=== PATIENT | female | born 2000 | race African-American/Black ===

== ENCOUNTER 2020-10-14 18:11 | Emergency (ER) | payer OTHER, SELFPAY ==
[2020-10-14 18:15] VITALS: PULSE 93; RESP 22; TEMP 37.3; O2SAT 99
--- NOTE | 2020-10-14 18:55 | PC.NURSE ---
Observed patient sitting on gurney swinging her feet and just tapped her head with her clenched fist.
--- NOTE | 2020-10-14 18:56 | ED_ITS ---
HPI - Psych <Lindsay Blevins MD - Last Filed: 10/15/20 20:02> General Chief Complaint: Psychiatric Symptoms Stated Complaint: SI Time Seen by Provider: 10/14/20 18:56 Source: patient Mode of arrival: Ambulatory History of Present Illness HPI Narrative: 20-year-old woman with a history of schizoaffective bipolar type who is having increasing suicidal ideation and increasing auditory hallucinations. She has a primary caregiver in a psychiatric nurse practitioner both whom she sees via telehealth and are in [place] and [facility] respectively. She states that she restarted her lithium and olanzapine 2 days ago and does not feel that it is making a difference. She continues her Lamictal, gabapentin, benztropine but is concerned that this current concoction medications is what she had been on about a year ago and she feels that she is not making any forward progress. She notes that she was hospitalized for similar complaints about a year ago in [place]. Her current plan for hurting herself would be to drive off the [place] bridge. She says that last weekend she overdosed on her gabapentin (as this was the only medication available to her at that time) and then became nauseated and vomited them up. She states that she has had multiple prior suicide attempts in the past. She notes that she typically does not have auditory or visual hallucinations but over the last week she has been hearing increasing auditory with spurs, no command hallucinations. She has having no visual hallucinations. She notes that she has occasional heart palpitations and has had this ever since her Geodon was discontinued when she began to developed tardive dyskinesia symptoms. She recently moved back to the [facility] after going to school in [place]. Her parents have moved to the [facility] and she is currently living with them. She is requesting help with voluntary admission for increasing suicidal ideations. She does not feel safe at this time and does not feel that she can contract for safety if she is discharged home. Related Data Home Medications Medication Instructions Recorded Confirmed lamotrigine 200 mg PO QPM 10/15/20 10/15/20 lamotrigine [Lamictal] 50 mg PO QPM 10/15/20 10/15/20 lithium carbonate 300 mg PO BEDTIME 10/15/20 10/15/20 olanzapine 5 mg PO BEDTIME 10/15/20 10/15/20 Allergies Allergy/AdvReac Type Severity Reaction Status Date / Time ziprasidone [From Geodon] AdvReac tardive Verified 10/14/20 19:38 diskinesia symptoms Review of Systems <Lindsay Blevins MD - Last Filed: 10/15/20 20:02> Review of Systems Narrative: Pertinent positive and negative findings as per HPI Remainder of review of systems is otherwise unremarkable for Constitutional: Fevers, chills, weakness ENT: No sore throat, neck pain, ear pain CV: Chest pain, dyspnea on exertion Respiratory: Cough, wheeze, dyspnea GI: diarrhea, change in bowel habits, black or bloody stools : Dysuria, hematuria, flank pain MS: Muscle weakness, numbness, joint swelling or warmth Skin: Rashes, nonhealing lesions Neuro: Syncope, dizziness, tingling Psych: Depression, anxiety, suicidal ideation Endocrine: Fatigue, heat or cold intolerance, very dry skin Patient History <Lindsay Blevins MD - Last Filed: 10/15/20 20:02> Medical History Anxiety Schizoaffective disorder, bipolar type Social History Smoking Status: Never smoker Smoking Status: Never smoker alcohol intake frequency: 0-2 drinks per day Exam <Lindsay Blevins MD - Last Filed: 10/15/20 20:02> Narrative Exam Narrative: General: Healthy appearing, in no acute distress. Able to give a complete and coherent history. Well-nourished well-developed HEENT: Moist mucous membranes, normal sclera with reactive pupils, Neck: No JVD, supple Respiratory: Lungs are clear to auscultation, no wheezing no rales no rhonchi. Full and symmetrical air movement Cardiac: Regular rate and rhythm no murmurs no bruits Abdomen: Soft, nontender, good bowel tones, no flank pain Skin: Warm and dry, no rashes Neurologic: Grossly neurologically intact with no obvious asymmetries or abnormalities Extremities: No trauma, well perfused Psych: Cooperative, flat affect, poor eye contact and does seem to be responding to internal stimuli(auditory hallucinations). Speech is fluent and nonpressured. Thought content is appropriate Initial Vital Signs Initial Vital Signs: Vital Signs Temperature 99.1 F 10/14/20 18:15 Pulse Rate 93 H 10/14/20 18:15 Respiratory Rate 22 10/14/20 18:15 Pulse Oximetry 99 10/14/20 18:15 <Valentina Padilla DO - Last Filed: 10/15/20 18:39> Initial Vital Signs Initial Vital Signs: Vital Signs Temperature 99.1 F 10/14/20 18:15 Pulse Rate 93 H 10/14/20 18:15 Respiratory Rate 22 10/14/20 18:15 Pulse Oximetry 99 10/14/20 18:15 Course <Lindsay Blevins MD - Last Filed: 10/15/20 20:02> Orders Ordered: Discontinued Medications Benztropine Mesylate (Benztropine 1 Mg Tablet) 1 mg PO NOW ONE Stop: 10/14/20 22:05 Last Admin: 10/14/20 23:44 Dose: Not Given Documented by: JESS Lamotrigine (Lamotrigine 100 Mg Tablet) 250 mg PO NOW ONE Stop: 10/14/20 22:04 Last Admin: 10/14/20 22:57 Dose: 250 mg Documented by: JESS Olanzapine (Olanzapine Odt 10 Mg Tab) 10 mg PO NOW ONE Stop: 10/14/20 22:04 Last Admin: 10/14/20 22:58 Dose: 10 mg Documented by: JESS Prazosin HCl (Prazosin 1 Mg Capsule) 1 mg PO NOW ONE Stop: 10/14/20 22:05 Last Admin: 10/14/20 22:57 Dose: 1 mg Documented by: JESS Vital Signs Vital signs: Vital Signs - 8 hr 10/15/20 17:45 Temperature 98.9 F Pulse Rate 83 Respiratory Rate 18 Blood Pressure [Left Arm] 122/79 Pulse Oximetry 97 <Valentina Padilla DO - Last Filed: 10/15/20 18:39> Orders Ordered: Discontinued Medications Benztropine Mesylate (Benztropine 1 Mg Tablet) 1 mg PO NOW ONE Stop: 10/14/20 22:05 Last Admin: 10/14/20 23:44 Dose: Not Given Documented by: JESS Lamotrigine (Lamotrigine 100 Mg Tablet) 250 mg PO NOW ONE Stop: 10/14/20 22:04 Last Admin: 10/14/20 22:57 Dose: 250 mg Documented by: JESS Olanzapine (Olanzapine Odt 10 Mg Tab) 10 mg PO NOW ONE Stop: 10/14/20 22:04 Last Admin: 10/14/20 22:58 Dose: 10 mg Documented by: JESS Prazosin HCl (Prazosin 1 Mg Capsule) 1 mg PO NOW ONE Stop: 10/14/20 22:05 Last Admin: 10/14/20 22:57 Dose: 1 mg Documented by: JESS Vital Signs Vital signs: Vital Signs - 8 hr 10/15/20 17:45 Temperature 98.9 F Pulse Rate 83 Respiratory Rate 18 Blood Pressure [Left Arm] 122/79 Pulse Oximetry 97 MDM - Psych <Lindsay Blevins MD - Last Filed: 10/15/20 20:02> Medical Records Attestation: I reviewed the patient's medical records. Lab Data Attestation: I reviewed the patient's lab results. Result diagrams: 10/14/20 18:45 10/14/20 18:45 Labs: Lab Results 10/14/20 10/14/20 10/14/20 Range/Units 18:45 18:45 18:45 WBC 7.0 (4.5-11.0) X10^3/uL RBC 5.02 (4.0-5.2) X10^6/uL Hgb 15.4 (12.0-16.0) g/dL Hct 45.1 (36-46) % MCV 89.8 (80-100) fL MCH 30.7 (26-34) PG MCHC 34.2 (30-36) % RDW 11.9 (11.6-14.8) % Plt Count 265 (150-400) X10^3/uL Neut % (Auto) 57.2 (50-75) % Lymph % (Auto) 34.9 (25-40) % [place] % (Auto) 6.1 (3-14) % Eos % (Auto) 1.3 L (2-4) % Baso % (Auto) 0.5 (0-2) % Neut # (Auto) 4000 (8506-7883) /uL Lymph # (Auto) 2500 (3923-5221) /uL [place] # (Auto) 400 (0-900) /uL Eos # (Auto) 100 (0-450) /uL Baso # (Auto) 0 (0-100) /uL Sodium 139 (137-145) mmol/L Potassium 3.7 (3.4-5.1) mmol/L Chloride 105 (98-107) mmol/L Carbon Dioxide 28 (22-32) mmol/L BUN 10 (7-17) mg/dL Creatinine 0.86 (0.52-1.04) mg/dL Estimated GFR > 60.0 (>60) mL/min BUN/Creatinine Ratio 11.6 (6-22) Glucose 117 H (70-100) mg/dL Calcium 9.1 (8.4-10.2) mg/dL Total Bilirubin 0.2 (0.2-1.3) mg/dL AST 23 (14-36) IU/L ALT 19 (<35) IU/L Alkaline Phosphatase 76 (38-126) U/L Total Protein 7.7 (6.3-8.2) g/dL Albumin 4.5 (3.5-5.0) g/dL Globulin 3.2 (1.7-4.1) g/dL Albumin/Globulin Ratio 1.4 (1.0-2.8) TSH 3.63 (0.47-4.68) uIU/mL Free T4 1.15 (0.78-2.19) ng/dL Salicylates < 1.0 (<20) mg/dL U Opiates 300ng/mL cut (Negative) Ur Oxycodone Screen (Negative) Urine Methadone Screen (Negative) Acetaminophen < 10 L (10-30) ug/mL Ur Barbiturates Screen (Negative) U Tricyclic Antidepress (Negative) Ur Phencyclidine Scrn (Negative) Ur Amphetamines Screen (Negative) U Methamphetamines Scrn (Negative) Ur MDMA Scrn (Ecstasy) (Negative) U Benzodiazepines Scrn (Negative) [place] (0.6-1.2) mmol/L Urine Cocaine Screen (Negative) U Marijuana (THC) Screen (Negative) Ethyl Alcohol < 10 ( - 10) mg/dL SARS-CoV-2 (PCR) (Negative) 10/14/20 10/14/20 10/14/20 Range/Units 18:45 19:05 19:50 WBC (4.5-11.0) X10^3/uL RBC (4.0-5.2) X10^6/uL Hgb (12.0-16.0) g/dL Hct (36-46) % MCV (80-100) fL MCH (26-34) PG MCHC (30-36) % RDW (11.6-14.8) % Plt Count (150-400) X10^3/uL Neut % (Auto) (50-75) % Lymph % (Auto) (25-40) % [place] % (Auto) (3-14) % Eos % (Auto) (2-4) % Baso % (Auto) (0-2) % Neut # (Auto) (4603-9222) /uL Lymph # (Auto) (8081-3390) /uL [place] # (Auto) (0-900) /uL Eos # (Auto) (0-450) /uL Baso # (Auto) (0-100) /uL Sodium (137-145) mmol/L Potassium (3.4-5.1) mmol/L Chloride (98-107) mmol/L Carbon Dioxide (22-32) mmol/L BUN (7-17) mg/dL Creatinine (0.52-1.04) mg/dL Estimated GFR (>60) mL/min BUN/Creatinine Ratio (6-22) Glucose (70-100) mg/dL Calcium (8.4-10.2) mg/dL Total Bilirubin (0.2-1.3) mg/dL AST (14-36) IU/L ALT (<35) IU/L Alkaline Phosphatase (38-126) U/L Total Protein (6.3-8.2) g/dL Albumin (3.5-5.0) g/dL Globulin (1.7-4.1) g/dL Albumin/Globulin Ratio (1.0-2.8) TSH (0.47-4.68) uIU/mL Free T4 (0.78-2.19) ng/dL Salicylates (<20) mg/dL U Opiates 300ng/mL cut Negative (Negative) Ur Oxycodone Screen Negative (Negative) Urine Methadone Screen Negative (Negative) Acetaminophen (10-30) ug/mL Ur Barbiturates Screen Negative (Negative) U Tricyclic Antidepress Negative (Negative) Ur Phencyclidine Scrn Negative (Negative) Ur Amphetamines Screen Negative (Negative) U Methamphetamines Scrn Negative (Negative) Ur MDMA Scrn (Ecstasy) Negative (Negative) U Benzodiazepines Scrn Negative (Negative) [place] < 0.2 L (0.6-1.2) mmol/L Urine Cocaine Screen Negative (Negative) U Marijuana (THC) Screen Negative (Negative) Ethyl Alcohol ( - 10) mg/dL SARS-CoV-2 (PCR) Negative (Negative) Point of Care Testing Test Results Negative Urine Dip Bedside Urine Glucose Negative Bedside Urine Bilirubin - Negative Bedside Urine Ketone - Negative Urine Specific [place] 1.010 Bedside Urine Occult Blood - Negative Bedside Urine pH 6.0 Bedside Urine Protein - Negative Bedside Urine Urobilinogen - Negative Bedside Urine Nitrite - Negative Bedside Urine Leukocytes - Negative Esterase ECG Data Attestation: I personally reviewed and interpreted this ECG as follows: Interpretation: Sinus rhythm at a rate of 88 Normal intervals, QTC is 438 Normal axis No acute ischemic changes Normal EKG MDM Narrative Medical decision making narrative: 20-year-old woman with schizoaffective disorder bipolar type with increasing auditory hallucinations and suicidal ideation who feels unsafe and is requesting help with voluntary psychiatric admission. She is medically cleared. We currently do not have access to a sawmill production worker until tomorrow around noon. Will see if there are any voluntary psychiatric beds available at this time. 10pm discussed concerns and findings with the patient. Offered to have her stay in the emergency room overnight with sawmill production worker can help 1st thing in the morning. She is agreeable. Have ordered her nighttime meds. <Valentina Padilla, DO - Last Filed: 10/15/20 18:39> Lab Data Labs: Lab Results 10/14/20 10/14/20 10/14/20 Range/Units 18:45 18:45 18:45 WBC 7.0 (4.5-11.0) X10^3/uL RBC 5.02 (4.0-5.2) X10^6/uL Hgb 15.4 (12.0-16.0) g/dL Hct 45.1 (36-46) % MCV 89.8 (80-100) fL MCH 30.7 (26-34) PG MCHC 34.2 (30-36) % RDW 11.9 (11.6-14.8) % Plt Count 265 (150-400) X10^3/uL Neut % (Auto) 57.2 (50-75) % Lymph % (Auto) 34.9 (25-40) % [place] % (Auto) 6.1 (3-14) % Eos % (Auto) 1.3 L (2-4) % Baso % (Auto) 0.5 (0-2) % Neut # (Auto) 4000 (8799-3095) /uL Lymph # (Auto) 2500 (4823-1583) /uL [place] # (Auto) 400 (0-900) /uL Eos # (Auto) 100 (0-450) /uL Baso # (Auto) 0 (0-100) /uL Sodium 139 (137-145) mmol/L Potassium 3.7 (3.4-5.1) mmol/L Chloride 105 (98-107) mmol/L Carbon Dioxide 28 (22-32) mmol/L BUN 10 (7-17) mg/dL Creatinine 0.86 (0.52-1.04) mg/dL Estimated GFR > 60.0 (>60) mL/min BUN/Creatinine Ratio 11.6 (6-22) Glucose 117 H (70-100) mg/dL Calcium 9.1 (8.4-10.2) mg/dL Total Bilirubin 0.2 (0.2-1.3) mg/dL AST 23 (14-36) IU/L ALT 19 (<35) IU/L Alkaline Phosphatase 76 (38-126) U/L Total Protein 7.7 (6.3-8.2) g/dL Albumin 4.5 (3.5-5.0) g/dL Globulin 3.2 (1.7-4.1) g/dL Albumin/Globulin Ratio 1.4 (1.0-2.8) TSH 3.63 (0.47-4.68) uIU/mL Free T4 1.15 (0.78-2.19) ng/dL Salicylates < 1.0 (<20) mg/dL U Opiates 300ng/mL cut (Negative) Ur Oxycodone Screen (Negative) Urine Methadone Screen (Negative) Acetaminophen < 10 L (10-30) ug/mL Ur Barbiturates Screen (Negative) U Tricyclic Antidepress (Negative) Ur Phencyclidine Scrn (Negative) Ur Amphetamines Screen (Negative) U Methamphetamines Scrn (Negative) Ur MDMA Scrn (Ecstasy) (Negative) U Benzodiazepines Scrn (Negative) [place] (0.6-1.2) mmol/L Urine Cocaine Screen (Negative) U Marijuana (THC) Screen (Negative) Ethyl Alcohol < 10 ( - 10) mg/dL SARS-CoV-2 (PCR) (Negative) 10/14/20 10/14/20 10/14/20 Range/Units 18:45 19:05 19:50 WBC (4.5-11.0) X10^3/uL RBC (4.0-5.2) X10^6/uL Hgb (12.0-16.0) g/dL Hct (36-46) % MCV (80-100) fL MCH (26-34) PG MCHC (30-36) % RDW (11.6-14.8) % Plt Count (150-400) X10^3/uL Neut % (Auto) (50-75) % Lymph % (Auto) (25-40) % [place] % (Auto) (3-14) % Eos % (Auto) (2-4) % Baso % (Auto) (0-2) % Neut # (Auto) (9733-7395) /uL Lymph # (Auto) (0310-2472) /uL [place] # (Auto) (0-900) /uL Eos # (Auto) (0-450) /uL Baso # (Auto) (0-100) /uL Sodium (137-145) mmol/L Potassium (3.4-5.1) mmol/L Chloride (98-107) mmol/L Carbon Dioxide (22-32) mmol/L BUN (7-17) mg/dL Creatinine (0.52-1.04) mg/dL Estimated GFR (>60) mL/min BUN/Creatinine Ratio (6-22) Glucose (70-100) mg/dL Calcium (8.4-10.2) mg/dL Total Bilirubin (0.2-1.3) mg/dL AST (14-36) IU/L ALT (<35) IU/L Alkaline Phosphatase (38-126) U/L Total Protein (6.3-8.2) g/dL Albumin (3.5-5.0) g/dL Globulin (1.7-4.1) g/dL Albumin/Globulin Ratio (1.0-2.8) TSH (0.47-4.68) uIU/mL Free T4 (0.78-2.19) ng/dL Salicylates (<20) mg/dL U Opiates 300ng/mL cut Negative (Negative) Ur Oxycodone Screen Negative (Negative) Urine Methadone Screen Negative (Negative) Acetaminophen (10-30) ug/mL Ur Barbiturates Screen Negative (Negative) U Tricyclic Antidepress Negative (Negative) Ur Phencyclidine Scrn Negative (Negative) Ur Amphetamines Screen Negative (Negative) U Methamphetamines Scrn Negative (Negative) Ur MDMA Scrn (Ecstasy) Negative (Negative) U Benzodiazepines Scrn Negative (Negative) [place] < 0.2 L (0.6-1.2) mmol/L Urine Cocaine Screen Negative (Negative) U Marijuana (THC) Screen Negative (Negative) Ethyl Alcohol ( - 10) mg/dL SARS-CoV-2 (PCR) Negative (Negative) Point of Care Testing Test Results Negative Urine Dip Bedside Urine Glucose Negative Bedside Urine Bilirubin - Negative Bedside Urine Ketone - Negative Urine Specific [place] 1.010 Bedside Urine Occult Blood - Negative Bedside Urine pH 6.0 Bedside Urine Protein - Negative Bedside Urine Urobilinogen - Negative Bedside Urine Nitrite - Negative Bedside Urine Leukocytes - Negative Esterase MDM Narrative Medical decision making narrative: Patient signed out to me by maintenance supervisor 2nd shift provider. Social Work has been involved faxing paperwork to [facility]. However patient now states that she no longer feels suicidal she feels like her medication has been off she received 10 mg of olanzapine last night instead of 5 mg she feels like that has helped her a lot. She is [facility] with [facility] [place]. At this time I feel is though patient's recent history of 2 suicide attempts is high risk I feel she needs to be hospitalized. Patient is no longer wanting to be hospitalized at this point she is now in involuntary. Social work has been in to evaluate her since these changes as well and agrees. She has only been stable for a few hours and symptoms have been escalating for the last 2 weeks. Patient was given an option of being involuntary or voluntary at this time she chooses to be voluntary and agrees to go to hospital [facility] has accepted her. Discharge Plan Departure Patient Disposition: Xfer Psychiatric Hosp Clinical Impression: Schizoaffective disorder, bipolar type, Suicidal ideation Referrals: Jared Dodd MD [Primary Care Provider] -
--- NOTE | 2020-10-14 18:56 | PC.NURSE ---
pt keys given to dad, tenisha, per her request. pt belongings in 3 bags (clothing, shoes, wallet, house chaudhari, cell phone. pt wearing disposable scrubs and non slip socks.
[2020-10-14 19:02] LABS: Add Manual Diff / Slide Review NO; Basophils Absolute Auto 0 /uL (0-100); Basophils Percent Auto 0.5 % (0-2); Eosinophils Absolute Auto 100 /uL (0-450); Eosinophils Percent Auto 1.3 % (2-4); Hematocrit 45.1 % (36-46); Hemoglobin 15.4 g/dL (12.0-16.0); Lymphocytes Absolute Auto 2500 /uL (1100-4500); Lymphocytes Percent Auto 34.9 % (25-40); Mean Corpuscular HGB Conc 34.2 % (30-36); Mean Corpuscular Hemoglobin 30.7 PG (26-34); Mean Corpuscular Volume 89.8 fL (80-100); Monocytes Absolute Auto 400 /uL (0-900); Monocytes Percent Auto 6.1 % (3-14); Neutrophils Absolute Auto 4000 /uL (1500-7000); Neutrophils Percent Auto 57.2 % (50-75); Platelet Count 265 X10^3/uL (150-400); Red Blood Cell Count 5.02 X10^6/uL (4.0-5.2); Red Cell Distribution Width 11.9 % (11.6-14.8)
[2020-10-14 19:09] LABS: Acetaminophen < 10 ug/mL (10-30); Alanine Aminotransferase 19 IU/L (<35); Albumin 4.5 g/dL (3.5-5.0); Albumin Globulin Ratio 1.4 (1.0-2.8); Alkaline Phosphatase 76 U/L (38-126); Aspartate Aminotransferase 23 IU/L (14-36); BUN Creatinine Ratio 11.6 (6-22); Bilirubin Total 0.2 mg/dL (0.2-1.3); Blood Urea Nitrogen 10 mg/dL (7-17); Calcium 9.1 mg/dL (8.4-10.2); Carbon Dioxide 28 mmol/L (22-32); Chloride 105 mmol/L (98-107); Estimated Glomerular Filt Rate > 60.0 mL/min (>60); Ethanol (ETOH) < 10 mg/dL; Globulin 3.2 g/dL (1.7-4.1); Glucose 117 mg/dL (70-100); HEMOLYSIS < 15 (0-50); Potassium 3.7 mmol/L (3.4-5.1); Salicylate < 1.0 mg/dL (<20); Sodium 139 mmol/L (137-145); Total Protein 7.7 g/dL (6.3-8.2)
--- NOTE | 2020-10-14 19:13 | PC.NURSE ---
pt states if she goes to another facility it is ok to let her dad, rebecca, know.
--- NOTE | 2020-10-14 19:20 | PC.NURSE ---
Observed Patient softly striking the side of her head with both fists 3 times
[2020-10-14 19:25] LABS: Lithium < 0.2 mmol/L (0.6-1.2)
--- NOTE | 2020-10-14 19:37 | PC.NURSE ---
Patient suddenly burst into tears after I asked her what her height was. She stated she wished she didn't check herself into the hospital, and that she goes back and forth between wanting to kill herself and not wanting to.
[2020-10-14 19:38] LABS: Free T4, Direct Thyroxine 1.15 ng/dL (0.78-2.19)
[2020-10-14 19:39] LABS: COVID19 -Nasal RAPID Negative (Negative)
--- NOTE | 2020-10-14 19:50 | PC.NURSE ---
Observed patient hitting her head hard with both clenched fists four times and whimpering.
[2020-10-14 19:52] LABS: Thyroid Stimulating Hormone 3.63 uIU/mL (0.47-4.68)
[2020-10-14 20:02] LABS: UR Morphine/Opiate cutoff 300 Negative (Negative); Ur Creatinine Normal (Normal); Ur Specific Gravity Normal (Normal); Urine Amphetamines Negative (Negative); Urine Barbiturates Negative (Negative); Urine Benzodiazepines Negative (Negative); Urine Cocaine Negative (Negative); Urine MDMA Negative (Negative); Urine Methadone Negative (Negative); Urine Methamphetamines Negative (Negative); Urine Oxycodone Negative (Negative); Urine Phencyclidine Negative (Negative); Urine Tetrahydrocannabinol Negative (Negative); Urine Tricyclic Antidepressant Negative (Negative); Urine pH Normal (Normal)
[2020-10-14] MEDS: PRAZOSIN 1 MG CAPSULE PO (22:57)
[2020-10-14] MEDS: lamoTRIgine 100 MG TABLET 250 MG PO (22:57)
[2020-10-14] MEDS: OLANZapine ODT 10 MG TAB PO (22:58)
--- NOTE | 2020-10-15 00:57 | PC.NURSE ---
pt has been sleeping since change of shift at 23:30
[2020-10-15 08:00] VITALS: BP 121/70; PULSE 101; RESP 19; TEMP 36.8; O2SAT 98
--- NOTE | 2020-10-15 10:23 | PC.NURSE ---
TRIAGE REGISTERED NURSE/CYLINDER MACHINE OPERATOR Note: Patient is compliant and continues to sleep after breakfast was provided @0800. Vitals signs taken. Temp:98.3 oral, Pulse:101, Respiration: 19, O2:98% RA,: B/P: 121/70. Daysi notified. Will continue to monitor.
[2020-10-15 12:00] VITALS: BP 115/72; PULSE 102; RESP 20; TEMP 36.9; O2SAT 97
--- NOTE | 2020-10-15 12:16 | CM.SWNOTE ---
SMALL BUSINESS REPRESENTATIVE note SMALL BUSINESS REPRESENTATIVE reviewed chart and called [facility] for update on status. Laura at [facility] reports that she only received 4 pages of clinical packet. SMALL BUSINESS REPRESENTATIVE faxes over complete packet and provides [phone] for call back. SMALL BUSINESS REPRESENTATIVE updates ED Provider Dr. Padilla and URVASHI Stokes. Pl: SMALL BUSINESS REPRESENTATIVE will wait for placement decision from [facility]. MARCO A Rinaldi
--- NOTE | 2020-10-15 13:30 | PC.NURSE ---
pt states she realizes she is stressed over school. 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 i spoke with dr. hernandez and will let kayode know when he's back in the department. pt also has a telehealth therapy appt tomorrow.
--- NOTE | 2020-10-15 14:49 | CM.SWNOTE ---
SALES VENDOR note SALES VENDOR is informed by RN that patient is requesting to leave. SALES VENDOR enters room and introduces self to patient. Patient is A+O x3 is forthcoming with details and hx of SI and psychosis. Patient currently lives alone in [place]. Patient discusses recently reducing antipsychotic medication to [id number] under direction of PCP starting 2 weeks prior. Patient reports she did this due to jaw movements. Patient reports she then discontinued the medication completely and began to experience paranoia and delusions. Patient reports she started to feel suicidal about a week ago and states I couldn't think clearly to weigh the pros and cons. Patient reports drinking 1 bottle of wine and taking 60 gabapentin pills on 10/12 in an a suicide attempt, but reports she vomitted all of the pills. Patient reports she had planned to jump off of [place] bridge Patient reports she came to ED by herself as a result of this. Patient reports hx of SI/SA, with last inpatient hospitalization one year prior for SI. Patient meets regularly with counselor Avery Machado and rehab/pre vocational counselor Lavinia Hazel. Patient states she has a standing appt with Avery tomorrow, and provides SALES VENDOR with permission to contact both providers. Patient reports her psychology tech increased her medication previous Thursday and patient states that she believes it took a few days to kick in. Patient reports she is currently feeling stable and is not feeling suicidal at all at this time. Patient does offer that she realizes that she has only felt stable for half of a day. SALES VENDOR and patient discussed med stabilization and concerns for safety. Patient calmly states she does not want to go to inpatient treatment at this time, and is able to articulate what has been effective for her during other periods of psychosis and SI. Patient explains she had a negative exerpience at her last inpatient treatment center 1 year prior. Patient explains significant stress from current school load and states she plans to reduce her school work load so I don't fail at everything. SALES VENDOR exits room and speaks with Dr. Padilla. Patient is currently denying SI, however, patient has made two significant attempts in past 4 days. SALES VENDOR calls patient counselor Avery Machado at [phone]. Avery informs SALES VENDOR that he has been working with patient since July of 2020, and during their time, patient has demonstrated a pattern of medication non-compliance, SI, poor insight. Avery reports that patient often sends him e-mails during the night detailing suicide ideation, and that when he follows up with her the next day, she denies any SI. Avery reports that she hides her psychosis from those around her, and that informs SALES VENDOR that patient has expressed that she likes her hallucinations, including her visual hallucinations of demons and snakes. Avery also explains that he believes patient is not forthcoming with her prescriber regarding the extent of her hallucinations, and states that patient is really good at hiding her psychosis. Avery also reports that that family does not know/does not understand extent of patient's psychosis, and that patient has declined to include family in course of care. Avery notes that, following her release from last inpatient stay, patient was convinced by her mother to discontinue her antipsychotic medication. SALES VENDOR informs Avery that current plan will be to recommend inpatient treatment and Avery indicates agreement. SALES VENDOR agrees to follow up with Avery once plan is solidified. SALES VENDOR staffs with Dr. Padilla. Dr. Padilla in agreement with plan for inpatient. SALES VENDOR enters room and informs patient of recommendation for inpatient treatment for med stabilization. SALES VENDOR explains that SALES VENDOR can continue pursuing placement at [facility] if patient agreeable, and if not agreeable, SALES VENDOR would be required to initiate [facility] process. Patient states she is agreeable to attend and participate in voluntary treatment at [facility]. SALES VENDOR exchanges phone calls with [facility]. Laura from [facility] informs SALES VENDOR that patient has been accepted for placement. Details of acceptance placed in comments box in EMR and listed below: [facility]. Intake contact: Laura. Accepting Provider: Dr. Wong. [id number]: [phone]. SALES VENDOR updates, URVASHI Hollis, Dr. Padilla, and patient. All parties remain agreeable to plan of care. Plan: Patient to transfer to [facility] to continue behavioral health stabilization. MARCO A Rinaldi
--- NOTE | 2020-10-15 16:04 | PC.NURSE ---
Patient was given her phone for a few minutes to catch up with emails and texts. very calm and pleasant.
--- NOTE | 2020-10-15 16:23 | PC.NURSE ---
patient requested a new set of disposable scrubs in a larger size. Disposed the old set.
[2020-10-15 17:45] VITALS: BP 122/79; PULSE 83; RESP 18; TEMP 37.2; O2SAT 97
== END 2020-10-15 18:40 ==
PROVIDERS: Emergency Medicine; Emergency Provider Emergency Medicine; PCP Internal Medicine
DX: F25.0 Schizoaffective disorder, bipolar type (principal); R45.851 Suicidal ideations; R00.2 Palpitations; Z20.822 Contact with and (suspected) exposure to COVID-19
CPT/HCPCS: 36415; 80053; 80178; 80305; 80320; 80329; 81003; 81025; 84439; 84443; 85025; 87635; 93005; 99284; C9803; G0480

== ENCOUNTER → 2021-04-30 09:29 | Outpatient (CLI) | payer OTHER, SELFPAY | PROVIDERS: PCP Internal Medicine; Visit Provider Nurse Practitioner | DX: R30.9 Painful micturition, unspecified (principal) | CPT/HCPCS: 87077; 87086; 87186 ==

== ENCOUNTER → 2023-08-21 10:23 | Outpatient (CLI) | payer OTHER, SELFPAY ==
[2023-08-21 12:05] LABS: Creatine Kinase 102 U/L (30-135); Magnesium 2.1 mg/dL (1.6-2.3); Phosphorous 3.8 mg/dL (2.5-4.5)
[2023-08-21 12:14] LABS: NT-proBNP (BNP-Adult 18+) < 20 pg/mL (<125)
[2023-08-22 19:18] LABS: Tissue Transglutaminase IgA <2 U/mL (0-3)
[2023-08-24 08:43] LABS: IGA 124 mg/dL (87-352); IGG 553 mg/dL (586-1602); IGM 145 mg/dL (26-217)
== END ==
PROVIDERS: PCP Physician Assistant; Referring Provider Internal Medicine Gastroenterology; Visit Provider Internal Medicine Gastroenterology
DX: R19.7 Diarrhea, unspecified (principal)
CPT/HCPCS: 36415; 82550; 82784; 83516; 83735; 83880; 84100

== ENCOUNTER → 2023-10-02 17:33 | Outpatient (CLI) | payer OTHER, MEDICAID, SELFPAY ==
[2023-10-07 15:27] LABS: Calprotectin, Stool 5 ug/g (0-120)
== END ==
PROVIDERS: PCP Physician Assistant; Referring Provider Internal Medicine Gastroenterology; Visit Provider Internal Medicine Gastroenterology
DX: R19.7 Diarrhea, unspecified (principal)
CPT/HCPCS: 83993

== ENCOUNTER 2024-05-12 20:43 | Emergency (ER) | payer OTHER, SELFPAY ==
[2024-05-12] VITALS (7 sets, daily range): BP systolic 127–155; BP diastolic 63–94; PULSE 80–99; RESP 18–23; TEMP 36.6; O2SAT 98–100; BMI 37.6
--- NOTE | 2024-05-12 21:02 | EKG_ITS ---
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
--- NOTE | 2024-05-12 21:14 | ED.ARRPALP ---
HPI - Arrhythmia/Palpitations General Chief Complaint: Arrhythmia/Palpitations Stated Complaint: heart races when lays down, numbness Time Seen by Provider: 05/12/24 20:46 Source: patient Mode of arrival: Ambulatory History of Present Illness HPI narrative: Patient is a 23-year-old female. Has a history of schizoaffective disorder and anxiety. Is here for evaluation of approximately 3 weeks of symptoms where she states that when she lays down she feels like her heart is racing. During this time she also feels like her arms become numb. It happens every time she lays down. It improves when she sits up and walks around. She states it feels like when she has anxiety but she does not necessarily feel anxious. No chest pain. Symptoms seemed to start when she started a new medication (spironolactone) however she stopped taking this medicine 1 week ago in his still having symptoms. Related Data Home Medications Medication Instructions Recorded Confirmed lamotrigine 25 mg tablet (Lamictal) 50 mg PO QPM 10/15/20 01/19/24 cariprazine 3 mg capsule (Vraylar) 3 mg PO DAILY 04/30/21 01/19/24 gabapentin 300 mg capsule 1,200 mg PO DAILY 04/30/21 01/19/24 prazosin PO 04/30/21 01/19/24 budesonide 3 mg 3 mg PO DAILY 01/19/24 01/19/24 capsule,delayed,extended release hydroxyzine HCl 25 mg tablet 25 mg PO BID PRN 01/19/24 01/19/24 lithium carbonate 300 mg capsule 1,050 mg PO BEDTIME 01/19/24 01/19/24 mirtazapine 7.5 mg tablet 7.5 mg PO BEDTIME 01/19/24 01/19/24 Allergies Allergy/AdvReac Type Severity Reaction Status Date / Time ziprasidone [From Geodon] AdvReac tardive Verified 01/19/24 14:31 diskinesia symptoms Review of Systems Review of Systems ROS Unobtainable: All systems reviewed & are unremarkable except as noted in HPI and below Patient History Medical History Anxiety Schizoaffective disorder, bipolar type Social History Smoking Status: Former smoker Smoking Status: Former smoker alcohol intake frequency: 0-2 drinks per day Substance Use Type: does not use Exam Initial Vital Signs Initial Vital Signs: Vital Signs Temperature 97.9 F 05/12/24 20:48 Pulse Rate 89 05/12/24 20:48 Respiratory Rate 18 05/12/24 20:48 Blood Pressure 154/94 H 05/12/24 20:48 Pulse Oximetry 98 05/12/24 20:48 Oxygen Delivery Method Room Air 05/12/24 20:48 Const General: cooperative, comfortable and No ill appearing HENMT Head: normal to inspection and normocephalic Resp Effort & Inspection: normal respiratory effort Auscultation: clear to auscultation bilaterally Cardio Rate: regular rate Rhythm: regular rhythm GI Inspection: normal to inspection and non-distended Neuro General: patient alert, patient awake, patient oriented x3 and moves all extremities Psych Appearance: grossly normal and well kempt Course Orders Ordered: ED Orders 05/12/24 20:47 EKG-12 Lead Stat 05/12/24 21:14 Complete Blood Count AUTO DIFF Stat Comprehensive Metabolic Panel Stat Lipase Stat Magnesium Stat Vital Signs Vital signs: Vital Signs - 8 hr 05/12/24 20:48 05/12/24 20:55 05/12/24 20:57 Temperature 97.9 F Pulse Rate 89 89 90 Respiratory Rate 18 Blood Pressure 154/94 H Pulse Oximetry 98 98 Oxygen Delivery Method Room Air 05/12/24 20:57 05/12/24 21:00 05/12/24 21:31 Temperature Pulse Rate 83 84 Respiratory Rate Blood Pressure 155/92 H Pulse Oximetry 100 100 Oxygen Delivery Method 05/12/24 21:31 05/12/24 22:00 05/12/24 22:00 Temperature Pulse Rate 80 Respiratory Rate 21 Blood Pressure 132/63 127/73 Pulse Oximetry 99 Oxygen Delivery Method 05/12/24 22:30 05/12/24 22:30 Temperature Pulse Rate 99 H Respiratory Rate 23 Blood Pressure 132/78 Pulse Oximetry 98 Oxygen Delivery Method MDM - Arrhythmia/Palpitations Lab Data Attestation: I reviewed the patient's lab results. 05/12/24 21:14 05/12/24 21:14 Labs: Lab Results 05/12/24 Range/Units 21:14 WBC 12.2 H (4.5-11.0) X10^3/uL RBC 4.94 (4.0-5.2) X10^6/uL Hgb 14.3 (12.0-16.0) g/dL Hct 42.3 (36-46) % MCV 85.6 (80-100) fL MCH 29.0 (26-34) PG MCHC 33.8 (30-36) % RDW 13.3 (11.6-14.8) % Plt Count 325 (150-400) X10^3/uL Neut % (Auto) 72.3 (50-75) % Lymph % (Auto) 20.3 L (25-40) % [place] % (Auto) 5.6 (3-14) % Eos % (Auto) 1.2 L (2-4) % Baso % (Auto) 0.6 (0-2) % Neut # (Auto) 8900 H (1694-1747) /uL Lymph # (Auto) 2500 (1309-2556) /uL [place] # (Auto) 700 (0-900) /uL Eos # (Auto) 100 (0-450) /uL Baso # (Auto) 100 (0-100) /uL Sodium 138 (137-145) mmol/L Potassium 3.9 (3.4-5.1) mmol/L Chloride 107 (98-107) mmol/L Carbon Dioxide 23 (22-32) mmol/L BUN 10 (7-17) mg/dL Creatinine 0.82 (0.52-1.04) mg/dL Estimated GFR > 60 (>60) mL/min BUN/Creatinine Ratio 12.2 (6-22) Glucose 132 H (70-100) mg/dL Calcium 9.5 (8.4-10.2) mg/dL Magnesium 2.2 (1.6-2.3) mg/dL Total Bilirubin 0.4 (0.2-1.3) mg/dL AST 27 (14-36) IU/L ALT 33 (<35) IU/L Alkaline Phosphatase 82 (38-126) U/L Total Protein 7.5 (6.3-8.2) g/dL Albumin 4.2 (3.5-5.0) g/dL Globulin 3.3 (1.7-4.1) g/dL Albumin/Globulin Ratio 1.3 (1.0-2.8) Lipase 124 (23-300) U/L ECG Data Attestation: I personally reviewed and interpreted this ECG as follows: Interpretation: Sinus rhythm Ventricular rate 97 Sinus arrhythmia Normal axis Normal QRS No ST T wave changes MDM Narrative Medical decision making narrative: Patient did have period of time when her heart rate went between 105 and 110 but it was sinus rhythm. She does not appear to be anxious. Low suspicion for CVA/TIA. Labs unremarkable. Low suspicion for ACS. Had a discussion with her regarding her symptoms. Recommended that she talk with her primary doctor about the indications for a Holter monitor. Will discharge patient home with return precautions. She expressed understanding and agreement with plan. Discharge Plan Departure Patient Disposition: Home Clinical Impression: Palpitations Instructions: Arrhythmias Activity Restrictions/Additional Instructions: I recommend that you continue to take all of your medications as directed. I recommend that you contact your primary care doctor to discuss the indications for a Holter monitor and keep your scheduled follow-up appointment. Return to the emergency department for new symptoms. Prescriptions: No Action prazosin PO gabapentin 300 mg capsule 1,200 mg PO DAILY Vraylar 3 mg capsule 3 mg PO DAILY budesonide 3 mg capsule,delayed,extend.release 3 mg PO DAILY hydroxyzine HCl 25 mg tablet 25 mg PO BID PRN mirtazapine 7.5 mg tablet 7.5 mg PO BEDTIME lamotrigine [Lamictal] 25 mg tablet 50 mg PO QPM lithium carbonate 300 mg capsule 1,050 mg PO BEDTIME Referrals: Diane Olsen PA-C [Primary Care Provider] - Stand Alone Forms: Patient Portal/API
[2024-05-12 21:22] LABS: Add Manual Diff / Slide Review NO; Basophils Absolute Auto 100 /uL (0-100); Basophils Percent Auto 0.6 % (0-2); Eosinophils Absolute Auto 100 /uL (0-450); Eosinophils Percent Auto 1.2 % (2-4); Hematocrit 42.3 % (36-46); Hemoglobin 14.3 g/dL (12.0-16.0); Lymphocytes Absolute Auto 2500 /uL (1100-4500); Lymphocytes Percent Auto 20.3 % (25-40); Mean Corpuscular HGB Conc 33.8 % (30-36); Mean Corpuscular Volume 85.6 fL (80-100); Monocytes Absolute Auto 700 /uL (0-900); Monocytes Percent Auto 5.6 % (3-14); Neutrophils Absolute Auto 8900 /uL (1500-7000); Neutrophils Percent Auto 72.3 % (50-75); Platelet Count 325 X10^3/uL (150-400); Red Blood Cell Count 4.94 X10^6/uL (4.0-5.2); Red Cell Distribution Width 13.3 % (11.6-14.8); White Blood Cell Count 12.2 X10^3/uL (4.5-11.0)
[2024-05-12 21:39] LABS: Alanine Aminotransferase 33 IU/L (<35); Albumin 4.2 g/dL (3.5-5.0); Albumin Globulin Ratio 1.3 (1.0-2.8); Alkaline Phosphatase 82 U/L (38-126); Aspartate Aminotransferase 27 IU/L (14-36); BUN Creatinine Ratio 12.2 (6-22); Bilirubin Total 0.4 mg/dL (0.2-1.3); Blood Urea Nitrogen 10 mg/dL (7-17); Calcium 9.5 mg/dL (8.4-10.2); Carbon Dioxide 23 mmol/L (22-32); Chloride 107 mmol/L (98-107); Estimated Glomerular Filt Rate > 60 mL/min (>60); Globulin 3.3 g/dL (1.7-4.1); Glucose 132 mg/dL (70-100); HEMOLYSIS < 15 (0-50); Potassium 3.9 mmol/L (3.4-5.1); Sodium 138 mmol/L (137-145); Total Protein 7.5 g/dL (6.3-8.2)
[2024-05-12 21:44] LABS: Lipase 124 U/L (23-300); Magnesium 2.2 mg/dL (1.6-2.3)
== END 2024-05-12 22:45 | disposition home or self-care (01) ==
PROVIDERS: Emergency Provider Emergency Medicine; PCP Physician Assistant
DX: R00.2 Palpitations (principal); R20.0 Anesthesia of skin
CPT/HCPCS: 36415; 80053; 83690; 83735; 85025; 93005; 99283; 99284

== ENCOUNTER → 2024-05-18 15:40 | Outpatient (CLI) | payer OTHER, SELFPAY | PROVIDERS: PCP Physician Assistant; Referring Provider Internal Medicine Gastroenterology; Visit Provider Internal Medicine Gastroenterology | DX: M25.50 Pain in unspecified joint (principal) | CPT/HCPCS: 36415; 83520 ==

== ENCOUNTER → 2024-05-31 10:16 | Outpatient (CLI) | payer OTHER, SELFPAY ==
[2024-05-31 11:44] LABS: Erythrocyte Sedimentation Rate 11 MM/HR (0-20)
[2024-05-31 14:04] LABS: C-Reactive Protein Quant < 0.5 mg/dL (<1.0)
[2024-06-01 04:09] LABS: Complement C3 161 mg/dL (82-167)
[2024-06-02 10:12] LABS: CCP Antibodies IgG/IgA 2 units (0-19)
[2024-06-03 13:36] LABS: ANA Screen, IFA Negative (.)
== END ==
PROVIDERS: PCP Physician Assistant; Referring Provider Internal Medicine Gastroenterology; Visit Provider Internal Medicine Gastroenterology
DX: R19.7 Diarrhea, unspecified (principal)
CPT/HCPCS: 36415; 83520; 85651; 86038; 86140; 86160; 86200

== ENCOUNTER → 2024-06-01 17:27 | Outpatient (CLI) | payer OTHER, SELFPAY | LOC: LAB 17:28 | PROVIDERS: PCP Physician Assistant; Referring Provider Internal Medicine Gastroenterology; Visit Provider Internal Medicine Gastroenterology | DX: R19.7 Diarrhea, unspecified (principal) | CPT/HCPCS: 83993 ==